=== PATIENT | female | born 1930 | race African-American/Black ===

== ENCOUNTER 2016-05-28 08:17 | Inpatient (IN) | payer MEDICARE, BC ==
[~2016-05-28] VITALS: Ht 157.5 cm; Wt 61.7 kg
[2016-05-28] VITALS (8 sets, daily range): BP systolic 108–135; BP diastolic 51–60
[2016-05-28] MEDS ORDERED: FENTANYL CITRATE/PF 50MCG/ML 2ML VIAL ONE ×2 (09:11→10:10)
[2016-05-28] MEDS ORDERED: LIDOCAINE HCL 1% 20ML VIAL (Pyxis) INJ ONE ×2 (09:11→10:08)
[2016-05-28] MEDS ORDERED: HEPARIN 1,000 UNITS PREMIX 0 ML IV ONE (09:11)
[2016-05-28] MEDS ORDERED: IODIXANOL 320MG/ML 100 ML BOTTLE IV ONE ×3 (09:11→10:09)
[2016-05-28] MEDS ORDERED: MIDAZOLAM HCL 2 MG/2 ML VIAL ONE ×4 (09:11→10:58)
[2016-05-28] MEDS ORDERED: HEPARIN SODIUM 1,000 UNIT/1ML VIAL IV ONE ×4 (09:20→10:35)
[2016-05-28] MEDS ORDERED: ASPIRIN/SOD BICARB/CITRIC ACID 324MG TAB EFF ONE (10:00)
[2016-05-28] MEDS ORDERED: ATROPINE SULFATE 0.1MG/ML 10ML DISP.SYRIN ONE (10:08)
[2016-05-28] MEDS ORDERED: IOVERSOL 240MG/ML 100ML BOTTLE IV ONE (10:27)
[2016-05-28] MEDS ORDERED: VANCOMYCIN 1 G PREMIX 200 ML IV NR (11:30)
[2016-05-28] MEDS ORDERED: CLOPIDOGREL 75MG TABLET ONE (11:39)
[2016-05-28] MEDS ORDERED: ASPIRIN 325MG TABLET ONE (11:39)
[2016-05-28] MEDS ORDERED: ACETAMINOPHEN 325MG TABLET PO PRN (11:45)
[2016-05-28] MEDS ORDERED: CLOPIDOGREL 75MG TABLET PO NR (11:45)
[2016-05-28] MEDS ORDERED: ATROPINE SULFATE 1MG/10ML SYR IV PRN (11:45)
[2016-05-28] MEDS ORDERED: ISOS30TA6 PO (12:09)
[2016-05-28] MEDS ORDERED: METF500T4 PO (12:09)
[2016-05-28] MEDS ORDERED: ASPI-1035 PO (12:09)
[2016-05-28] MEDS ORDERED: SODIUM CHLORIDE 0.45% 1,000 ML IV SCH (12:37)
[2016-05-28] MEDS ORDERED: NITROGLYCERIN 50MCG/ML 10ML VIAL (CATH LAB) IV ONE (12:53)
[2016-05-28] MEDS ORDERED: NICARDIPINE 100MCG/ML 10ML VIAL (CATH LAB) IV ONE (12:53)
[2016-05-28] MEDS: METOPROLOL TARTRATE 25MG TABLET PO SCH ×2 (16:32→21:52)
[2016-05-29] VITALS (7 sets, daily range): BP systolic 103–137; BP diastolic 42–61
[2016-05-29] MEDS ORDERED: LOPERAMIDE HCL 2MG CAPSULE PO NR (00:25)
[2016-05-29] MEDS ORDERED: ZOLPIDEM TARTRATE 5MG TABLET PO PRN (00:30)
[2016-05-29] MEDS ORDERED: LOPERAMIDE HCL 2MG CAPSULE PO PRN (00:30)
[2016-05-29 06:12] LABS: BASOPHILS % 0.3 % (0.0-2.0); EOSINOPHILS % 1.8 % (0.0-5.0); HEMATOCRIT. 29.8 % (36.0-48.0); HEMOGLOBIN. 9.7 g/dL (12.0-16.0); LYMPHOCYTES % 17.2 % (20.0-50.0); MEAN CORPUSCULAR HEMOGLOBIN 30.5 pg (28.0-32.0); MEAN CORPUSCULAR HGB CONC 32.7 g/dL (31.0-37.0); MEAN CORPUSCULAR VOLUME 93.1 fL (81.0-99.0); MEAN PLATELET VOLUME 7.7 fl (7.4-10.4); MONOCYTES % 10.4 % (2.0-8.0); NEUTROPHILS % 70.3 % (40.0-76.0); PLATELET 258 x1000/uL (130-400); RED CELL DISTRIBUTION WIDTH 14.3 % (11.6-14.6); WHITE BLOOD COUNT 6.8 x1000/uL (4.5-11.0)
[2016-05-29 06:54] LABS: CALCIUM 8.5 mg/dL (8.5-10.1)
[2016-05-29] MEDS ORDERED: ASPIRIN 325MG TABLET PO SCH (09:00)
[2016-05-29] MEDS ORDERED: CLOPIDOGREL 75MG TABLET PO SCH (09:00)
[2016-05-29] MEDS: METOPROLOL TARTRATE 25MG TABLET PO SCH (09:23)
[2016-05-29] MEDS ORDERED: BLOOD SUGAR DIAGNOSTIC STRIP TEST SCH (11:50)
== END 2016-05-29 11:14 | disposition home health service (06) | DRG 247 ==
LOC: CCL 08:17 → 3WST 08:18
PROVIDERS: ADMIT Specialist; ATTEND Specialist
PROC: 027034Z Dilation of Coronary Artery, One Artery with Drug-eluting Intraluminal Device, Percutaneous Approach (ICD-10-PCS; principal; 2016-05-28)
PROC: 4A023N7 Measurement of Cardiac Sampling and Pressure, Left Heart, Percutaneous Approach (ICD-10-PCS; 2016-05-28)
PROC: B2111ZZ Fluoroscopy of Multiple Coronary Arteries using Low Osmolar Contrast (ICD-10-PCS; 2016-05-28)
PROC: B2151ZZ Fluoroscopy of Left Heart using Low Osmolar Contrast (ICD-10-PCS; 2016-05-28)
DX: I25.110 Atherosclerotic heart disease of native coronary artery with unstable angina pectoris (principal); I47.1 Supraventricular tachycardia; I48.92 Unspecified atrial flutter; I25.82 Chronic total occlusion of coronary artery; D63.8 Anemia in other chronic diseases classified elsewhere; I13.10 Hypertensive heart and chronic kidney disease without heart failure, with stage 1 through stage 4 chronic kidney disease, or unspecified chronic kidney disease; N18.9 Chronic kidney disease, unspecified; E11.22 Type 2 diabetes mellitus with diabetic chronic kidney disease; I48.91 Unspecified atrial fibrillation; Z79.899 Other long term (current) drug therapy; Z88.2 Allergy status to sulfonamides; Z98.51 Tubal ligation status; Z90.49 Acquired absence of other specified parts of digestive tract
CPT/HCPCS: 36415; 80048; 82962; 83735; 84132; 85025; 85347; 92928; 93005; 93458; C1725; C1760; C1769; C1887; C1893; J0461; J1644; J2250; J3010; J3370; J3490; Q9967

== ENCOUNTER 2018-06-15 09:05 | Day surgery (SDC) | payer BC, MEDICARE ==
[~2018-06-15] VITALS: Ht 157.5 cm; Wt 64.0 kg
[~2018-06-15 09:05] MED LIST: ASPI-1159 PO; CLOP75TA33 PO; METO-385 PO; SITA100T11 PO
[2018-06-15] MEDS ORDERED: LIP40 PO (10:20)
[2018-06-15] MEDS ORDERED: MIDAZOLAM HCL 2 MG/2 ML VIAL ONE (10:40)
[2018-06-15] MEDS ORDERED: LIDOCAINE HCL 1% 20ML VIAL (Pyxis) INJ ONE (10:40)
[2018-06-15] MEDS ORDERED: IODIXANOL 320MG/ML 100 ML BOTTLE IV ONE (10:40)
[2018-06-15] MEDS ORDERED: FENTANYL CITRATE/PF 50MCG/ML 2ML VIAL ONE (10:40)
[2018-06-15] MEDS ORDERED: IOHEXOL-300 100 ML BOTTLE ONE (11:08)
[2018-06-15] MEDS ORDERED: ACETAMINOPHEN 325MG TABLET PO PRN (17:03)
[2018-06-15] MEDS ORDERED: ATROPINE SULFATE 1MG/10ML SYR IV PRN (17:04)
[2018-06-15] MEDS ORDERED: ONDANSETRON HCL 4MG/2ML INJ IV PRN (17:04)
== END 2018-06-15 15:20 | disposition home or self-care (01) ==
LOC: CCL 09:05
PROVIDERS: ATTEND Specialist
DX: I70.211 Atherosclerosis of native arteries of extremities with intermittent claudication, right leg (principal); I25.10 Atherosclerotic heart disease of native coronary artery without angina pectoris; I10 Essential (primary) hypertension; E78.5 Hyperlipidemia, unspecified; E11.9 Type 2 diabetes mellitus without complications; E87.5 Hyperkalemia; J98.8 Other specified respiratory disorders
CPT/HCPCS: 36246; 75710; 82962; 99152; C1760; C1769; C1893; C1894; J1644; J2250; J3010; J3490; Q9967; G0500

== ENCOUNTER 2018-08-24 06:35 | Emergency (ER) | payer BC, MEDICARE ==
[~2018-08-24] VITALS: Ht 160 cm; Wt 66.0 kg
[~2018-08-24 06:35] MED LIST changes: +LIP40 PO
[2018-08-24] MEDS ORDERED: TRAMADOL 50MG TABLET PO ONE (07:45)
[2018-08-24 08:34] VITALS: BP 159/54
== END 2018-08-24 09:15 | disposition home or self-care (01) ==
LOC: ER 06:35
DX: M79.601 Pain in right arm (principal); R03.0 Elevated blood-pressure reading, without diagnosis of hypertension; Z91.81 History of falling
CPT/HCPCS: 99283; A4565